=== PATIENT | female | born 1955 | race Caucasian/White ===

== ENCOUNTER → 2017-08-26 10:58 | Outpatient (CLI) | payer OTHER, SELFPAY ==
--- NOTE | 2017-08-29 15:49 | PM.PFT.1 ---
Pulmonary Function Test Referral & Results Date Patient Seen: 08/26/17 Requesting provider: Georgie Miranda Results: The spirometry demonstrates an FVC of 2.53 L which is 73% of predicted. The FEV1 was measured at 2.12 L which is 80% of predicted. The FEV1/FVC ratio was 80 for which is 108% of predicted. Following the administration of bronchodilator there was no appreciable change. Lung volumes show an SVC of 3.96 L which is 124% of predicted. No diffusing capacity was performed The maximum voluntary ventilation was reduced. Interpretation: This study demonstrates mild obstructive lung disease which is verified by shape will flow volume loop. There is no evidence of restrictive lung disease.
== END ==
PROVIDERS: Family Provider Internal Medicine Hematology & Oncology; PCP Physician Assistant; Visit Provider Physician Assistant
DX: R06.02 Shortness of breath (principal)
CPT/HCPCS: 94010; 94060; 94729

== ENCOUNTER → 2017-09-14 09:49 | Outpatient (CLI) | payer OTHER, SELFPAY ==
--- NOTE | 2017-09-14 | DI.CT.S_ITS ---
PROCEDURE: CT CHEST ABD PEL W CON INDICATIONS: GRANULOSA CELL CARCINOMA TECHNIQUE: After the administration of oral and intravenous contrast, 5 mm thick sections acquired from the lung apices to the symphysis. 5 mm coronal and sagittal reformats were performed, with additional 7 mm coronal MIP reformats through the lungs. For radiation dose reduction, the following was used: automated exposure control, adjustment of mA and/or kV according to patient size. COMPARISON: [facility], CT, CHEST/ABD/PEL WITH CONTRAST, 05/10/2017, 16:39. FINDINGS: Image quality: Excellent. CHEST: Lungs and pleura: No acute airspace opacities. No pleural effusions or pneumothorax. Central and peripheral airways appear patent and normal in caliber. Mediastinum: Heart size is normal. No pericardial effusion. No mediastinal or hilar adenopathy by size criteria. Thoracic aorta and central pulmonary arteries are normal in size. Esophagus is normal in caliber. No hiatal hernia. Chest wall: No axillary or supraclavicular adenopathy by size criteria. Thyroid gland appears normal where well visualized. Port-A-Cath in normal position. ABDOMEN: Solid organs: Liver is normal in size and enhancement. Gallbladder appears normal. Biliary system is non dilated. Pancreas enhances normally. Spleen is normal in size and enhancement. No adrenal nodules. Kidneys demonstrate normal size and enhancement, without hydronephrosis. Peritoneum and bowel: Bowel loops demonstrate normal wall thickness and caliber. No free fluid or air. Nodes and vessels: No retroperitoneal or mesenteric adenopathy by size criteria. Aorta and inferior vena cava are normal in size. Miscellaneous: No ventral hernias. Within the peritoneal space of the lower abdomen and pelvis numerous small rounded soft tissue masses can be seen, sharply demarcated. These were identified on the prior CT scanning from 05/10/17 and appear somewhat mobile with the bowel loops, changing orientation and position but not clearly increasing in number. There has been a definite but mild interval reduction in size of most of these lesions, on the order of 2-3 mm in all dimensions. The largest mass is at the left lower quadrant, having measured up to 4.4 cm in maximal dimension previously and now 3.7 cm. PELVIS: Genitourinary: Bladder wall thickness is normal. Miscellaneous: No inguinal hernias or adenopathy. Small rounded soft tissue masses within the peritoneal space of the pelvis have diminished in size to the same degree as those present within the abdominal peritoneal space, previously identified. An enteric staple line appears present at the sigmoid colon posteriorly, at the rectosigmoid junction. Bones: No suspicious bony lesions. No vertebral body compression fractures. IMPRESSION: A number of soft tissue homogeneous sharply demarcated malignant appearing metastatic lesions within the peritoneal space of the lower abdomen and pelvis are present, but without increase in number. These have largely diminished in size on the order of 2-3 mm in all dimensions generally. The largest lesion has diminished to a larger degree, from 4.4 cm in maximal dimension previously to now 3.7 cm. No pulmonary metastatic disease is seen. Port-A-Cath extends in normal position into the superior vena cava. Dictated by: Dany Davidson M.D. on 09/14/2017 at 12:47 Approved by: Dany Davidson M.D. on 09/14/2017 at 13:21
== END ==
PROVIDERS: Family Provider Internal Medicine Hematology & Oncology; PCP Physician Assistant; Visit Provider Internal Medicine Hematology & Oncology
DX: C56.9 Malignant neoplasm of unspecified ovary (principal); N94.89 Other specified conditions associated with female genital organs and menstrual cycle
CPT/HCPCS: 71260; 74177; Q9967

== ENCOUNTER 2017-11-22 10:30 | Outpatient (RCR) | payer OTHER, SELFPAY ==
--- NOTE | 2017-11-18 13:42 | PT.OIE ---
Current Diagnoses Trochanteric bursitis, right hip (11/17/17) Past Surgical History Status post surgery (06/02/10) Provider Visit Care Team Role Provider Type Georgie Miranda PA-C Primary Care Provider Advanced Patient Access Coordinator Specialty: Internal Medicine Address: [address] [place] [address], [id number] Email: Johnny Lomax MD Family Provider Physician Specialty: Oncology Address: [address] [place] [address], [address] Email: Deng Prescott MD Attending Provider Physician Specialty: Orthopedic Surgery Address: [address] [place] [address], [address] Email: [email or web address] Physical Therapy Initial Evaluation PT-OP-A Visit Information Start: 11/17/17 10:29 Freq: Status: Active Protocol: Document 11/17/17 10:30 AMB (Rec: 11/18/17 09:14 AMB [email or web address]) Out-Patient Physical Therapy Visit Information Visit Information Visit Type Initial Evaluation Visit Start Time 10:30 Visit Stop Time 11:15 Total Visit Minutes 45 Visit Number 1 Evaluation Information Evaluation Date 11/17/17 PT-OP-B Current Condition Start: 11/17/17 10:29 Freq: Status: Active Protocol: Document 11/17/17 10:30 AMB (Rec: 11/18/17 09:14 AMB [email or web address]) Current Condition History of Current Condition Onset Date 9 months ago Current Complaints R hip pain at night History of Current Condition The patient reports insidious onset right hip pain that began sometime after her left hip replacement (posterior approach) 2 years ago. She really only notices the pain at night when she is trying to sleep (sleeping on the right hip is the most comfortable, but historically she has preferred to sleep on her left side which is currently quite painful). Prior Functional Status Baseline Function- ADL's Independent Baseline Function- Mobility Independent Current Functional Impairments (Reported) Functional Limitations- ADL's Difficulty sleeping Personal Factors Other Personal Factors That May Effect Ovarian cancer with Therapy/Recovery chemotherapy that has caused shortness of breath and decreased hearing per the patient. Prior history of posterior approach NEY on the left. Pt will be moving to [place] in a month. PT-OP-C Subjective Start: 11/17/17 10:29 Freq: Status: Active Protocol: Document 11/17/17 10:30 AMB (Rec: 11/18/17 09:14 AMB [email or web address]) Patient Questionnaires Lower Extremity Functional Scale LEFS Score 48 LEFS Impairment 20 to 39% Impaired (Score 48- 62) OP-PT Pain Assessment Pain Assessment Grid Paper Pain Assessment Grid Completed Yes Location Right Hip Pain Location Details R posterior hip Intensity 3 Scale Used Numeric (1 - 10) Description Aching Comments Pain Comments none at baseline when sitting, rolling over in bed and sleeping in general increase pain PT-OP-F Manual Assessment Start: 11/17/17 10:29 Freq: Status: Active Protocol: Document 11/17/17 10:30 AMB (Rec: 11/18/17 09:26 AMB [email or web address]) Manual Assessments Soft Tissue Assessment Soft Tissue Mobility Assessment Tenderness and tightness at IT band and piriformis Joint Mobility Assessment Joint Mobility Assessment Limited IR reproduces groin pain but not the pain that pt feels at night PT-OP-G Mobility & Gait Start: 11/17/17 10:29 Freq: Status: Active Protocol: Document 11/17/17 10:30 AMB (Rec: 11/18/17 09:26 AMB [email or web address]) OP Gait Assessment Comments Gait Comments decreased trunk rotation with increased sidebending PT-OP-J Posture/Palpation/Skin Start: 11/17/17 10:29 Freq: Status: Active Protocol: Document 11/17/17 10:30 AMB (Rec: 11/18/17 09:26 AMB [email or web address]) Posture Evaluation Comments Posture Comments R leg short- L shoulder high in standing- pt does have scoliosis diagnosis. Palpation Assessment Location One Palpation Location R hip Palpation Details Tenderness over piriformis on R, bilateral tenderness over greater trochanter and IT band PT-OP-L Special Tests Start: 11/17/17 10:29 Freq: Status: Active Protocol: Document 11/17/17 10:30 AMB (Rec: 11/18/17 09:27 AMB [email or web address]) Special Tests Hip Special Tests Scour Test Test Results negative ANTONIO Test Results negative PT-OP-M Strength Start: 11/17/17 10:29 Freq: Status: Active Protocol: Document 11/17/17 10:30 AMB (Rec: 11/18/17 09:26 AMB [email or web address]) Hip Strength Hip Manual Muscle Testing Right Flexion (L2) 4+ Good+ Extension (S1) 4 Good Abduction 4+ Good+ External Rotation 4+ Good+ Left Flexion (L2) 4- Good- Extension (S1) 4- Good- Abduction 4- Good- External Rotation 4- Good- PT-OP-Q Treatments Start: 11/17/17 10:29 Freq: Status: Active Protocol: Document 11/17/17 10:30 AMB (Rec: 11/18/17 09:31 AMB [email or web address]) Therapeutic Exercises Supine Exercises 1 Supine Exercise Name piriformis stretch Reps/Minutes 30x3 Sidelying Exercises 2 Sidelying Exercise Name hip abd Reps/Minutes 2x10 1 Sidelying Exercise Name clamshell Reps/Minutes 2x10 PT-OP-T Assessment and Plan Start: 11/17/17 10:29 Freq: Status: Active Protocol: Document 11/17/17 10:30 AMB (Rec: 11/18/17 09:43 AMB [email or web address]) Physical Therapy Assessment Rehab Potential Rehabilitation Potential Good Evaluation Complexity Number of Personal Factors/Comorbidities 1-2 Number of Body Systems Impaired 4 or More Clinical Presentation at Evaluation Evolving Impairments Impairments Pain Posture Soft Tissue Mobility Strength Goals Two Impairment Tenderness to palpation Short Term Goal (STG) The patient will decrease her point tenderness over her left posterior hip to 1/10 pain or less. STG Duration 2 weeks [facility] Goal (LTG) The patient will be independent with a stretching and stabilization HEP. LTG Duration 4 weeks One Impairment Pain Short Term Goal (STG) The patient will decrease her waking up due to pain to 1x/ night. STG Duration 2 weeks Agricultural Economics Teacher Goal (LTG) The patient will roll over in bed without an increase in hip pain. LTG Duration 4 weeks Assessment Summary Assessment The patient presents to PT with R sided hip pain with rolling over in bed and sleeping. Her history of L NEY and scoliosis are contributing to her postural dysfunction. She will have to have a short bout of care due to her upcoming move. She does have point tenderness over her greater trochanter, but the pain that she reports wakes her up is more over her piriformis. She does not report radiating pain, so she will benefit from both manual therapy and exercise to improve her posture and function and reduce her pain. Physical Therapy Plan Frequency and Duration Frequency of Treatment 2x/Week Duration of Treatment 5 weeks Plan of Care Start Date 11/17/17 Plan of Care End Date 12/22/17 Therapeutic Interventions Therapeutic Interventions Gait Training Home Exercise Program Manual Therapy Neuromuscular Re-education Self-Care/Home Management Soft Tissue Mobilization Therapeutic Activities Therapeutic Exercises Modalities Cold Pack/Ice Massage Electric Stimulation Hot Packs Iontophoresis Ultrasound Next Visit Focus/Plan Next Note Type Treatment Note Next Visit Plan Progress hip stability/ ROM
--- NOTE | 2017-11-18 13:44 | PT.OPPOC ---
Current Diagnoses Pain in right hip (11/17/17) Trochanteric bursitis, right hip (11/17/17) Provider Visit Care Team Role Provider Type Georgie Miranda PA-C Primary Care Provider Advanced Bark Skinner Specialty: Internal Medicine Address: [address] [place] [address], [phone] Email: Johnny Lomax MD Family Provider Physician Specialty: Oncology Address: [address] [place] [address], [address] Email: Deng Prescott MD Attending Provider Physician Specialty: Orthopedic Surgery Address: [address] [place] [address], [phone] Email: [email or web address] Plan Of Care PT-OP-T Assessment and Plan Start: 11/17/17 10:29 Freq: Status: Active Protocol: Document 11/17/17 10:30 AMB (Rec: 11/18/17 09:43 AMB [email or web address]) Physical Therapy Assessment Rehab Potential Rehabilitation Potential Good Evaluation Complexity Number of Personal Factors/Comorbidities 1-2 Number of Body Systems Impaired 4 or More Clinical Presentation at Evaluation Evolving Impairments Impairments Pain Posture Soft Tissue Mobility Strength Goals Two Impairment Tenderness to palpation Short Term Goal (STG) The patient will decrease her point tenderness over her left posterior hip to 1/10 pain or less. STG Duration 2 weeks Media Buyer Goal (LTG) The patient will be independent with a stretching and stabilization HEP. LTG Duration 4 weeks One Impairment Pain Short Term Goal (STG) The patient will decrease her waking up due to pain to 1x/ night. STG Duration 2 weeks Media Buyer Goal (LTG) The patient will roll over in bed without an increase in hip pain. LTG Duration 4 weeks Assessment Summary Assessment The patient presents to PT with R sided hip pain with rolling over in bed and sleeping. Her history of L NEY and scoliosis are contributing to her postural dysfunction. She will have to have a short bout of care due to her upcoming move. She does have point tenderness over her greater trochanter, but the pain that she reports wakes her up is more over her piriformis. She does not report radiating pain, so she will benefit from both manual therapy and exercise to improve her posture and function and reduce her pain. Physical Therapy Plan Frequency and Duration Frequency of Treatment 2x/Week Duration of Treatment 5 weeks Plan of Care Start Date 11/17/17 Plan of Care End Date 12/22/17 Therapeutic Interventions Therapeutic Interventions Gait Training Home Exercise Program Manual Therapy Neuromuscular Re-education Self-Care/Home Management Soft Tissue Mobilization Therapeutic Activities Therapeutic Exercises Modalities Cold Pack/Ice Massage Electric Stimulation Hot Packs Iontophoresis Ultrasound Next Visit Focus/Plan Next Note Type Treatment Note Next Visit Plan Progress hip stability/ ROM Plan of Care Dates Plan of Care Start Date 11/17/17 Plan of Care End Date 12/22/17 Please Sign and Return: I have reviewed this Plan of Care and certify that the skilled therapy services above are required to meet the patient?s needs. Physician Signature Date Printed Name and Credentials Clinical Instructor Signature Printed Name and Credentials
--- NOTE | 2017-11-22 15:48 | PT.OTN ---
Current Diagnoses Trochanteric bursitis, right hip (11/22/17) Physical Therapy Treatment Note PT-OP-A Visit Information Start: 11/17/17 10:29 Freq: Status: Active Protocol: Document 11/22/17 10:30 AMB (Rec: 11/22/17 10:39 AMB [id number]) Out-Patient Physical Therapy Visit Information Visit Information Visit Type Treatment Note Visit Start Time 10:30 Visit Stop Time 11:15 Total Visit Minutes 45 Visit Number 2 PT-OP-B Current Condition Start: 11/17/17 10:29 Freq: Status: Active Protocol: Document 11/17/17 10:30 AMB (Rec: 11/18/17 09:14 AMB [email or web address]) Current Condition History of Current Condition Onset Date 9 months ago Current Complaints R hip pain at night History of Current Condition The patient reports insidious onset right hip pain that began sometime after her left hip replacement (posterior approach) 2 years ago. She really only notices the pain at night when she is trying to sleep (sleeping on the right hip is the most comfortable, but historically she has preferred to sleep on her left side which is currently quite painful). Prior Functional Status Baseline Function- ADL's Independent Baseline Function- Mobility Independent Current Functional Impairments (Reported) Functional Limitations- ADL's Difficulty sleeping Personal Factors Other Personal Factors That May Effect Ovarian cancer with Therapy/Recovery chemotherapy that has caused shortness of breath and decreased hearing per the patient. Prior history of posterior approach NEY on the left. Pt will be moving to [place] in a month. PT-OP-C Subjective Start: 11/17/17 10:29 Freq: Status: Active Protocol: Document 11/22/17 10:30 AMB (Rec: 11/22/17 10:39 AMB [id number]) OP-PT Subjective Patient Comments Patient Comments Wakes up 1/night PT-OP-F Manual Assessment Start: 11/17/17 10:29 Freq: Status: Active Protocol: Document 11/17/17 10:30 AMB (Rec: 11/18/17 09:26 AMB [email or web address]) Manual Assessments Soft Tissue Assessment Soft Tissue Mobility Assessment Tenderness and tightness at IT band and piriformis Joint Mobility Assessment Joint Mobility Assessment Limited IR reproduces groin pain but not the pain that pt feels at night PT-OP-G Mobility & Gait Start: 10/04/18 10:29 Freq: Status: Active Protocol: Document 11/17/17 10:30 AMB (Rec: 11/18/17 09:26 AMB [email or web address]) OP Gait Assessment Comments Gait Comments decreased trunk rotation with increased sidebending PT-OP-J Posture/Palpation/Skin Start: 11/17/17 10:29 Freq: Status: Active Protocol: Document 11/17/17 10:30 AMB (Rec: 11/18/17 09:26 AMB [email or web address]) Posture Evaluation Comments Posture Comments R leg short- L shoulder high in standing- pt does have scoliosis diagnosis. Palpation Assessment Location One Palpation Location R hip Palpation Details Tenderness over piriformis on R, bilateral tenderness over greater trochanter and IT band PT-OP-L Special Tests Start: 11/17/17 10:29 Freq: Status: Active Protocol: Document 11/17/17 10:30 AMB (Rec: 11/18/17 09:27 AMB [email or web address]) Special Tests Hip Special Tests Scour Test Test Results negative ANTONIO Test Results negative PT-OP-M Strength Start: 11/17/17 10:29 Freq: Status: Active Protocol: Document 11/17/17 10:30 AMB (Rec: 11/18/17 09:26 AMB [email or web address]) Hip Strength Hip Manual Muscle Testing Right Flexion (L2) 4+ Good+ Extension (S1) 4 Good Abduction 4+ Good+ External Rotation 4+ Good+ Left Flexion (L2) 4- Good- Extension (S1) 4- Good- Abduction 4- Good- External Rotation 4- Good- PT-OP-Q Treatments Start: 11/17/17 10:29 Freq: Status: Active Protocol: Document 11/22/17 10:30 AMB (Rec: 11/22/17 15:46 AMB [email or web address]) Cardio Equipment Bicycle (Upright) Duration (Minutes) 5 Resistance 5 Therapeutic Exercises Supine Exercises 2 Supine Exercise Name SLR Reps/Minutes 10 Comments with TrA stab 1 Supine Exercise Name piriformis stretch Reps/Minutes 30x3 Sidelying Exercises 2 Sidelying Exercise Name hip abd Reps/Minutes 2x10 1 Sidelying Exercise Name clamshell Reps/Minutes 2x10 Sitting Exercises 1 Sitting Exercise Name seated hamstring stretch Reps/Minutes 30x2 Standing Exercises 2 Standing Exercise Name mini lunges Reps/Minutes 10x2 Comments forward 1 Standing Exercise Name sidestepping in squat position Resistance yellow t band Reps/Minutes 10 PT-OP-R Modalities Start: 11/17/17 10:29 Freq: Status: Active Protocol: Document 11/22/17 10:30 AMB (Rec: 11/22/17 15:48 AMB [email or web address]) Hot Pack/Cold Pack Treatment Cold Pack Location R hip Patient Position Hooklying Treatment Duration (minutes) 10 Patient Tolerance Good PT-OP-T Assessment and Plan Start: 11/17/17 10:29 Freq: Status: Active Protocol: Document 11/22/17 10:30 AMB (Rec: 11/22/17 15:46 AMB [email or web address]) Physical Therapy Assessment Assessment Summary Assessment The pt is improving with icing and stretching. She will need to continue to work on hip abduction strength. She will hopefully follow up with a theracane as she found that helpful. Physical Therapy Plan Next Visit Focus/Plan Next Note Type Treatment Note Next Visit Plan If pt brings inserts, recommend if she returns to that.
--- NOTE | 2017-12-05 08:26 | PT.OPDS ---
Current Diagnoses Trochanteric bursitis, right hip (11/22/17) Provider Visit Care Team Role Provider Type Georgie Miranda PA-C Primary Care Provider Advanced Road Crossing Guard Specialty: Internal Medicine Address: [address] [place] [address], [phone] Email: Johnny Lomax MD Family Provider Physician Specialty: Oncology Address: [address] [place] [address], [address] Email: Deng Prescott MD Attending Provider Physician Specialty: Orthopedic Surgery Address: [address] [place] [address], [phone] Email: [email or web address] Visit Number Visit Number 2 Discharge Summary PT-OP-B Current Condition Start: 11/17/17 10:29 Freq: Status: Active Protocol: Document 11/17/17 10:30 AMB (Rec: 11/18/17 09:14 AMB [email or web address]) Current Condition History of Current Condition Onset Date 9 months ago Current Complaints R hip pain at night History of Current Condition The patient reports insidious onset right hip pain that began sometime after her left hip replacement (posterior approach) 2 years ago. She really only notices the pain at night when she is trying to sleep (sleeping on the right hip is the most comfortable, but historically she has preferred to sleep on her left side which is currently quite painful). Prior Functional Status Baseline Function- ADL's Independent Baseline Function- Mobility Independent Current Functional Impairments (Reported) Functional Limitations- ADL's Difficulty sleeping Personal Factors Other Personal Factors That May Effect Ovarian cancer with Therapy/Recovery chemotherapy that has caused shortness of breath and decreased hearing per the patient. Prior history of posterior approach NEY on the left. Pt will be moving to [place] in a month. PT-OP-C Subjective Start: 11/17/17 10:29 Freq: Status: Active Protocol: Document 11/22/17 10:30 AMB (Rec: 11/22/17 10:39 AMB [id number]) OP-PT Subjective Patient Comments Patient Comments Wakes up 1/night PT-OP-F Manual Assessment Start: 11/17/17 10:29 Freq: Status: Active Protocol: Document 11/17/17 10:30 AMB (Rec: 11/18/17 09:26 AMB [email or web address]) Manual Assessments Soft Tissue Assessment Soft Tissue Mobility Assessment Tenderness and tightness at IT band and piriformis Joint Mobility Assessment Joint Mobility Assessment Limited IR reproduces groin pain but not the pain that pt feels at night PT-OP-G Mobility & Gait Start: 11/17/17 10:29 Freq: Status: Active Protocol: Document 11/17/17 10:30 AMB (Rec: 11/18/17 09:26 AMB [email or web address]) OP Gait Assessment Comments Gait Comments decreased trunk rotation with increased sidebending PT-OP-J Posture/Palpation/Skin Start: 11/17/17 10:29 Freq: Status: Active Protocol: Document 11/17/17 10:30 AMB (Rec: 11/18/17 09:26 AMB [email or web address]) Posture Evaluation Comments Posture Comments R leg short- L shoulder high in standing- pt does have scoliosis diagnosis. Palpation Assessment Location One Palpation Location R hip Palpation Details Tenderness over piriformis on R, bilateral tenderness over greater trochanter and IT band PT-OP-L Special Tests Start: 11/17/17 10:29 Freq: Status: Active Protocol: Document 11/17/17 10:30 AMB (Rec: 11/18/17 09:27 AMB [email or web address]) Special Tests Hip Special Tests Scour Test Test Results negative ANTONIO Test Results negative PT-OP-M Strength Start: 11/17/17 10:29 Freq: Status: Active Protocol: Document 11/17/17 10:30 AMB (Rec: 11/18/17 09:26 AMB [email or web address]) Hip Strength Hip Manual Muscle Testing Right Flexion (L2) 4+ Good+ Extension (S1) 4 Good Abduction 4+ Good+ External Rotation 4+ Good+ Left Flexion (L2) 4- Good- Extension (S1) 4- Good- Abduction 4- Good- External Rotation 4- Good- PT-OP-T Assessment and Plan Start: 11/17/17 10:29 Freq: Status: Active Protocol: Document 12/05/17 08:25 AMB (Rec: 12/05/17 08:26 AMB [email or web address]) Physical Therapy Assessment Goals Two Impairment Tenderness to palpation Short Term Goal (STG) The patient will decrease her point tenderness over her left posterior hip to 1/10 pain or less. STG Duration 2 weeks Penitentiary Goal (LTG) The patient will be independent with a stretching and stabilization HEP. LTG Duration MET One Impairment Pain Short Term Goal (STG) The patient will decrease her waking up due to pain to 1x/ night. STG Duration MET Youth Program Director Goal (LTG) The patient will roll over in bed without an increase in hip pain. LTG Duration PARTIALLY MET Assessment Summary Assessment The patient called in to say that she is moving and ready to be discharged. Her pain is improving with icing and exercise, and she hopes to continue these activities. Physical Therapy Plan Discharge Physical Therapy Discharge Reasons Patient Request
== END 2018-02-08 10:12 ==
LOC: PHYS 10:30
PROVIDERS: Family Provider Internal Medicine Hematology & Oncology; PCP Physician Assistant; Visit Provider Orthopaedic Surgery
DX: M70.61 Trochanteric bursitis, right hip (principal)
CPT/HCPCS: 97010; 97110; 97161